=== PATIENT | female | born 1995 | race Caucasian/White ===

== ENCOUNTER 2019-09-22 21:13 | Emergency (ER) | payer OTHER ==
[~2019-09-22] VITALS: Ht 165.1 cm; Wt 56.8 kg
[~2019-09-22 21:13] MED LIST: BENADRYL50 MG PO; PREDNISONE20 MG PO; YAZ 28 3 MG-0.01 TAB PO
[2019-09-22 21:18] VITALS: BP 139/82; TEMP 98.9
[2019-09-22] MEDS ORDERED: ADDERALL XR30 MG PO (22:16)
[2019-09-22] MEDS ORDERED: NAPROXEN 3375 MG/TAB PO (22:58)
[2019-09-22 23:24] VITALS: PULSE 74
== END 2019-09-22 23:24 | disposition home or self-care (01) ==
LOC: COL.ER 21:13
DX: M94.0 Chondrocostal junction syndrome [Tietze] (principal)

== ENCOUNTER 2020-09-17 11:33 | Outpatient (RCR) | payer OTHER ==
[~2020-09-17 11:33] MED LIST changes: +ADDERALL XR30 MG PO; +NAPROXEN 3375 MG/TAB PO
== END 2020-09-23 ==
LOC: WSOH
DX: S29.012A Strain of muscle and tendon of back wall of thorax, initial encounter (principal); F90.9 Attention-deficit hyperactivity disorder, unspecified type; Z98.890 Other specified postprocedural states; Y99.0 Civilian activity done for income or pay

== ENCOUNTER 2020-09-27 14:28 | Outpatient (RCR) | payer OTHER | END 2020-12-26 | disposition home or self-care (01) | LOC: WSOH | DX: S29.012D Strain of muscle and tendon of back wall of thorax, subsequent encounter (principal); F90.9 Attention-deficit hyperactivity disorder, unspecified type; Z98.890 Other specified postprocedural states; Y99.0 Civilian activity done for income or pay ==

== ENCOUNTER → 2021-10-28 | Outpatient (CLI) | payer OTHER | LOC: COL.RAD 08:49 | DX: M25.562 Pain in left knee (principal); Z98.890 Other specified postprocedural states ==